=== PATIENT | female | born 2000 | race Caucasian/White ===

== ENCOUNTER 2022-05-05 19:42 | Emergency (ER) | payer OTHER, SELFPAY ==
[2022-05-05 20:16] VITALS: BP 106/55; PULSE 83; RESP 16; TEMP 36.3; O2SAT 98; BMI 27.4
--- NOTE | 2022-05-06 00:35 | PC.NURSE ---
Addendum entered by Che Esposito 05/06/22 00:36: Meds not given. Original Note: Pt mother stated concern to drive safely in the weather, decided to leave.
== END 2022-05-06 00:43 | disposition left against medical advice (07) ==
PROVIDERS: Emergency Provider Emergency Medicine; PCP Pediatrics
DX: R51.9 Headache, unspecified (principal)
CPT/HCPCS: 99281